=== PATIENT | male | born 1975 | race African-American/Black ===

== ENCOUNTER 2019-09-24 13:09 | Emergency (ER) | payer BC ==
[~2019-09-24] VITALS: Ht 188 cm; Wt 134.0 kg
[2019-09-24] MEDS ORDERED: KETOROLAC 30MG/ML VIAL IV STA (14:27)
[2019-09-24] MEDS ORDERED: ONDANSETRON HCL 4MG/2ML INJ IV STA (14:27)
[2019-09-24] MEDS ORDERED: MORPHINE SULFATE 4 MG/ML CPJ (NOT FOR IM USE) IV STA (14:27)
[2019-09-24] MEDS ORDERED: SODIUM CHLORIDE 0.9% 1000ML BAG (SEPSIS BOLUS) IV ONE (14:30)
[2019-09-24 15:15] LABS: HEMATOCRIT. 39.4 % (42.0-52.0); HEMOGLOBIN. 13.6 g/dL (14.0-18.0); MEAN CORPUSCULAR HEMOGLOBIN 28.5 pg (28.0-32.0); MEAN CORPUSCULAR VOLUME 82.5 fL (80.0-94.0); MEAN PLATELET VOLUME 8.5 fl (7.4-10.4); PLATELET 226 x1000/uL (130-400); RED BLOOD CELL COUNT 4.77 mill/uL (4.7-6.1); RED CELL DISTRIBUTION WIDTH 13.2 % (11.6-14.6)
[2019-09-24 15:21] LABS: PROTHROMBIN TIME 10.4 sec (9.6-11.0)
[2019-09-24 15:22] LABS: CHLORIDE 107 mEq/L (98-107)
[2019-09-24 15:26] LABS: ETHANOL BLOOD < 10 mg/dL
[2019-09-24 15:55] LABS: PLATELET ESTIMATE NORMAL
[2019-09-24] MEDS ORDERED: MAGNESIUM/ALUMINUM HYDROXIDE/SIMETHICONE 30ML UDC PO ONE (16:15)
[2019-09-24 17:00] VITALS: BP 126/83
== END 2019-09-24 17:33 | disposition home or self-care (01) ==
LOC: ER 13:09 → CANBEDREQ 18:09
DX: K52.9 Noninfective gastroenteritis and colitis, unspecified (principal); R11.2 Nausea with vomiting, unspecified
CPT/HCPCS: 36415; 74176; 80053; 80320; 83605; 83690; 84145; 84484; 85025; 85610; 87040; 96361; 96374; 96375; 99284; J1885; J2270; J2405; J7030; G0480